=== PATIENT | female | born 1970 | race African-American/Black ===

== ENCOUNTER 2016-09-19 01:02 | Emergency (ER) | payer SELFPAY ==
[~2016-09-19] VITALS: Ht 162.6 cm; Wt 74.8 kg
[2016-09-19] MEDS ORDERED: MECL25TA3 PO (02:08)
--- NOTE | 2016-09-19 02:09 | PHYS DOC ---
Past Medical History Past Medical History: Hypertension Past Surgical History: Hysterectomy Additional Past Surgical Histo: PARTIAL HYSTERECTOMY Alcohol Use: Occasionally Drug Use: None Adult General Chief Complaint Chief Complaint: HYPERTENSION HPI HPI 46-year-old female presenting to the emergency department with dizziness and spinning of the room intermittently for the past 2 days. It is worse when she moves and stands up. no alleviating factors are present. No specific timing present. She reports having hypertension however recently ran out of her blood pressure medications. ROS negative for chest pain abdominal pain nausea vomiting fevers or chills. All other review of systems is negative unless otherwise noted in history of present illness. Review of Systems Review of Systems SEE ABOVE. Allergies Allergies Allergies Coded Allergies Type Severity Reaction Last Updated Verified Penicillins Allergy Intermediate 09/19/16 Yes Physical Exam Physical Exam Constitutional: Well developed, well nourished, no acute distress, non-toxic appearance. [] HENT: Normocephalic, atraumatic, bilateral external ears normal, oropharynx moist, no oral exudates, nose normal. Eyes: PERRLA, EOMI, conjunctiva normal, no discharge. [] Neck: Normal range of motion, no tenderness, supple, no stridor. Cardiovascular:Heart rate regular rhythm, no murmur Lungs & Thorax: Bilateral breath sounds clear to auscultation [] Abdomen: Bowel sounds normal, soft, no tenderness, no masses, no pulsatile masses. Skin: Warm, dry, no erythema, no rash. Back: No tenderness, no CVA tenderness. [] Extremities: No tenderness, no cyanosis, no clubbing, ROM intact, no edema. Neurologic: Alert and oriented X 3, normal motor function, normal sensory function, no focal deficits noted. Patient has mild nystagmus on lateral gaze. Psychologic: Affect normal, judgement normal, mood normal. Current Patient Data Vital Signs Vital Signs Date Time Temp Pulse Resp B/P Pulse Ox O2 Delivery O2 Flow Rate FiO2 09/19/16 02:30 62 18 129/69 100 Room Air 09/19/16 01:46 98.3 98.3 EKG EKG [] Radiology/Procedures Radiology/Procedures [] Course & Med Decision Making Course & Med Decision Making Pertinent Labs and Imaging studies reviewed. (See chart for details) 46-year-old female presenting to the emergency department with vertigo. Vital signs unremarkable other than mild hypertension. Physical exam showed lateral nystagmus. Patient prescribed meclizine for vertigo along with referral to her primary care physician for hypertension management. She was subsequent discharged home to follow up with PCP over the next 2-3 days. [place] Disclaimer Dragon Disclaimer This electronic medical record was generated, in whole or in part, using a voice recognition dictation system. Departure Departure Impression: Primary Impression: Vertigo Additional Impression: HTN (hypertension) Disposition: HOME, SELF-CARE Condition: STABLE Referrals: NO PCP (PCP) JACKI BARRETO MD Patient Instructions: Vertigo Additional Instructions: Thank you for allowing us to participate in your care today. Followup with your primary care physician in 1-2 days for chronic hypertension management. If you do not have a primary care provider you can ask for a list of our primary care providers. Return to the emergency department you have any new or concerning findings. This should be evaluated by the primary care physician and any necessary consulting services for continued management within a few days after discharge. Return to emergency room if you have any new or concerning symptoms including but not limited to fever, chills, nausea, vomiting, intractable pain, any new rashes, chest pain, shortness of air, uncontrolled bleeding, difficulty breathing, and/or vision loss. Scripts Meclizine Hcl 25 Mg [id number] Mg PO PRN Q24HRS PRN DIZZINESS #10 TAB Prov:FLAKITA EUGENE MD 09/19/16 Problem Qualifiers FLAKITA EUGENE MD Sep 19, 2016 02:09
[2016-09-19 02:30] VITALS: BP 129/69
--- NOTE | 2016-09-19 12:16 | EKG ---
[facility] [address] [place] [address] Test Date: 2016-09-19 Test Time: 01:55:07 Pat Name: WOLFGANG MATIAS Department: Room: Gender: F Counter Caser: : [id number] Requested By: FLAKITA EUGENE Order Number: [id number] Reading MD: Measurements Intervals [place] Rate: 58 P: 39 MD: 148 QRS: 44 QRSD: 76 T: 21 QT: 434 QTc: 425 Interpretive Statements SINUS RHYTHM LEFT ATRIAL ABNORMALITY QRS(T) CONTOUR ABNORMALITY CONSIDER INFERIOR MYOCARDIAL DAMAGE ABNORMAL ECG RI6.01 No previous ECG available for comparison
== END 2016-09-19 02:48 | disposition home or self-care (01) ==
LOC: ER 01:02
DX: I10 Essential (primary) hypertension (principal); R42 Dizziness and giddiness; Z88.0 Allergy status to penicillin
CPT/HCPCS: 93005; 99283-25